=== PATIENT | female | born 2005 | race Hispanic/Latino ===

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

== ENCOUNTER 2024-04-14 07:54 | Emergency (ER) | payer SELFPAY ==
--- OUTSIDE RECORDS SUMMARY | 2024-04-14 07:56 | XMS REPORT | Continuity of Care Document ---
Author Name Unknown Address [address] [place] [address] [facility] thconnect Address [address] [place] [address] Care Team Providers Care Vice President Of Academic Affairs Name Role Phone Michael JO, [facility] Primary Care Physician [phone] Medications Ordered Medication Name Filled Medication Name Start Date Stop Date Current Medication? Ordering Clinician Indication Dosage Frequency Signature (SIG) Comments Components Source albuterol sulfate HFA 90 mcg/actuati on aerosol inhaler 02-01 00:00: 00 Yes 2mcg/ac tuation Emre Luciano TAKE 5 ML EVERY 4 TO 6 HOURS NEEDED FOR COUGH. 2022-10 0-04 00:00: 00 02-07 00:00 :00 No [id number] Emre Luciano TAKE 2 TABLETS ON DAY 1 THEN TAKE 1 TABLET A DAY FOR 4 DAYS. 2022-10 0- 00:00: 00 02-07 00:00 :00 No 250 Emre Luciano TAKE 1 TABLET DAILY. 2022-10 0-04 00:00: 00 02-07 00:00 :00 No 10 Emre Luciano 1-2 CAPS TID PRN 2022-10 0-04 00:00: 00 02-07 00:00 :00 No 100 Emre Luciano TAKE ONE (1) TABLET(S) BY MOUTH EVERY EIGHT HOURS NEEDED FOR MUSCLE SPASMS. 2021-10- 00:00: 00 Yes Emre Luciano TAKE ONE (1) TABLET(S) BY MOUTH EVERY SIX HOURS NEEDED FOR PAIN. 2021-10 00:00: 00 Yes Emre Luciano Vital Signs Vital Name Observation Time Observation Value Comments S ource Respiratory Rate 2024 10:03:00 19.00 /min Emre Luciano BP Systolic 2024 10:03:00 110 mm[Hg] Step lolita Luciano BP Diastolic 2024 10:03:00 74 mm[Hg] Bill phen Mary Luciano Weight Measured 2024 10:03:00 104.20 pounds Emre Luciano Height Measured 2024 10:03:00 62.40 inches Emre Lucaino Body Temperature 2024 10:03:00 98.10 degrees Emre Luciano Heart Rate 2024 10:03:00 67.00 /min Nneka en F Mustapha BP Systolic 2023-07-16 10:34:00 117 mm[Hg] Magdi Luciano BP Diastolic 2023-07-16 10:34:00 80 mm[Hg] Bill phen Mary Luciano Weight Measured 2023-07-16 10:34:00 105.60 pounds Emre Luciano Height Measured 2023-07-16 10:34:00 62.40 inches Emre Luciano Body Temperature 2023-07-16 10:34:00 98.10 degrees Emre Luciano Heart Rate 2023-07-16 10:34:00 84.00 /min Nneka en Mary Luciano Respiratory Rate 2023-07-16 10:34:00 16.00 /min Emre Luciano Encounters Start Date/Time End Date/Time Encounter Type Admission Type Attending [facility] Care Department Encounter ID Source 2024 09:57:56 2024 09:57:56 Outpatient SFA SFA [id number] Emre Luciano 2024 00:00:00 2024 00:00:00 Outpatient Visit [facility] [id number] Emre Luciano Notes Date/Time Note Provider Source 2024 00:00:00 [id number] T00:00:00+ + +| Plan Activity | Plan Date |+ ====+ +| Increase intake of proteins | 2023-07-16 |+ ----+ +| will treat to r/o upper respiratory infection | 2023-07-16 || Benzonatate 100 MG 1-2 CAPS TID PRN Yes | || Promethazine-DM 6.25-15 MG/5ML TAKE 5 ML EVERY 4 TO 6 HOURS NEEDED FOR | || COUGH. | |+ ----+ +| healthy diet and excercise | 2023-07-16 |+ ----+ +| healthy diet and excercise | 2023-07-16 |+ ----+ +| Auto-Add by COVID19 Screen Import | 2024 || No testing | |+ ----+ +| Mucinex DM | 2024 || symptomatic care | || OTC Claritin, lemon, honey, carrie | || Albuterol inhaler | || RTC 1 month for follow-up | |+ ----+ +[id number] of TreatmentLNCARE PLANTXTSFA|[id number] for patient [id number] Section NarrativeNARRATIVEFormatted C-CDA karmen Luciano [facility]2024-04-28T00:00:00 Emre Jhonny [facility]"
[2024-04-14] MEDS ORDERED: dexAMETHasone 10 MG/ML VIAL ONE (08:05)
[2024-04-14 09:14] LABS: SARS-CoV-2 Antigen CONTROL BLUE LINE VIS/BG OK; SARS-CoV-2 Antigen Rapid Res Negative (Negative)
--- NOTE | 2024-04-14 09:28 | EDPHYS ---
Physician Documentation [facility] Name: Allyson Mitchell Age: 19 yrs Sex: Female : 2005 Arrival Date: 04/14/2024 Time: 07:54 Bed 6 Private MD: ED Physician Hayley Arrington HPI: 04/14 08:13 This 19 yrs old Female presents to ER via Ambulatory with complaints of Sore sp3 Throat. 08:13 19-year-old female with history of scoliosis presents with sore throat for 3 to 4 days sp3 along with hoarse voice. Patient denies fever, chest pain, cough, known sick contacts, back pain, shortness of breath, travel history, or any other signs or symptoms on ROS at this time. Patient can still breathe and swallow without difficulty.. 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 - Infectious Disease History:: Denies. - Social history:: Smoking status: Patient denies any tobacco usage or history of. ROS: 08:14 Constitutional: Negative for fever, chills, and weight loss, Eyes: Negative for injury, sp3 pain, redness, and discharge, Neck: Negative for injury, pain, and swelling, Cardiovascular: Negative for chest pain, palpitations, and edema, Respiratory: Negative for shortness of breath, cough, wheezing, and pleuritic chest pain, Abdomen/GI: Negative for abdominal pain, nausea, vomiting, diarrhea, and constipation, Back: Negative for injury and pain, MS/Extremity: Negative for injury and deformity, Skin: Negative for injury, rash, and discoloration, Neuro: Negative for headache, weakness, numbness, tingling, and seizure, Psych: Negative for depression, anxiety, suicide ideation, homicidal ideation, and hallucinations, Allergy/Immunology: Negative for hives, rash, and allergies, Endocrine: Negative for neck swelling, polydipsia, polyuria, polyphagia, and marked weight changes, 08:14 All other systems are negative, Exam: 08:14 Constitutional: This is a well developed, well nourished patient who is awake, alert, sp3 and in no acute distress. Head/Face: Normocephalic, atraumatic. Eyes: Pupils equal round and reactive to light, extra-ocular motions intact. Lids and lashes normal. Conjunctiva and sclera are non-icteric and not injected. Cornea within normal limits. Periorbital areas with no swelling, redness, or edema. ENT: Nares patent. No nasal discharge, no septal abnormalities noted. External auditory canals are clear. Oropharynx with no redness, swelling, or masses, exudates, or evidence of obstruction, uvula midline. Mucous membranes moist. Neck: Trachea midline, no thyromegaly or masses palpated, and no cervical lymphadenopathy. Supple, full range of motion without nuchal rigidity, or vertebral point tenderness. No Meningismus. Chest/axilla: Normal chest wall appearance and motion. Nontender with no deformity. No lesions are appreciated. Cardiovascular: Regular rate and rhythm with a normal S1 and S2. No gallops, murmurs, or rubs. Normal PMI, no JVD. No pulse deficits. Respiratory: Lungs have equal breath sounds bilaterally, clear to auscultation and percussion. No rales, rhonchi or wheezes noted. No increased work of breathing, no retractions or nasal flaring. Abdomen/GI: Soft, non-tender, with normal bowel sounds. No distension or tympany. No guarding or rebound. No evidence of tenderness throughout. Back: No spinal tenderness. No costovertebral tenderness. Full range of motion. Skin: Warm, dry with normal turgor. Normal color with no rashes, no lesions, and no evidence of cellulitis. MS/ Extremity: Pulses equal, no cyanosis. Neurovascular intact. Full, normal range of motion. Neuro: Awake and alert, GCS 15, oriented to person, place, time, and situation. Cranial nerves II-XII grossly intact. Motor strength 5/5 in all extremities. Sensory grossly intact. Cerebellar exam normal. Normal gait. Psych: Awake, alert, with orientation to person, place and time. Behavior, mood, and affect are within normal limits. Vital Signs: 08:04 BP 119 / 83; Pulse 78; Resp 16; Temp 97.8; Pulse Ox 100% on R/A; Weight 46.72 kg; iw Height 4 ft. 11 in. ; Pain 0/10; 08:14 BP 101 / 91; Pulse 74; Resp 16; Pulse Ox 100% ; ko1 09:16 BP 99 / 71; Pulse 69; Resp 16; Pulse Ox 100% ; ko1 09:31 BP 103 / 67; Pulse 69; Resp 16; Pulse Ox 100% ; ko1 08:04 Body Mass Index 20.80 (46.72 kg, 149.86 cm) iw 08:04 Pain Scale: Adult iw MDM: 08:00 Patient medically screened. sp3 08:14 Data reviewed: vital signs, nurses notes, lab test result(s). ED course: 19-year-old sp3 female with sore throat and hoarse voice. Consider viral illness, strep pharyngitis, influenza, COVID-19, among others. I am not highly suspicious for pneumonia, sepsis, shock, meningitis, or any other critical pathology. There is no uvular shift and I am not suspicious of peritonsillar abscess or related infection. Will obtain swabs and administer Decadron 10 mg IM for symptomatic control. Antibiotics will be layered on if indicated otherwise conservative management of viral illness and OTC NSAIDs with PCP follow-up as needed.. 04/14 08:03 Order name: Strep sp3 04/14 08:03 Order name: Flu; Complete Time: 09:27 sp3 04/14 08:03 Order name: SARS RAPID; Complete Time: 09:27 sp3 04/14 09:12 Order name: Throat Culture EDMS Administered Medications: 08:10 Drug: Dexamethasone IM 10 mg IM once Route: IM; Site: left deltoid; ko1 08:25 Follow up: Response: No adverse reaction ko1 Disposition Summary: 04/14/24 09:28 Discharge Ordered Notes: Location: Home sp3 Condition: Stable sp3 Diagnosis - Laryngitis, viral illness sp3 Followup: sp3 - With: Private Physician - When: Upon discharge from the Emergency Department - Reason: Continuance of care Discharge Instructions: - Discharge Summary Sheet sp3 - Laryngitis sp3 Forms: - Medication Reconciliation Form sp3 - Antibiotic Education sp3 - Prescription Opioid Use sp3 - Patient Portal Instructions sp3 - Leadership Thank You Letter sp3 Prescriptions: - Diclofenac Sodium 75 mg Oral Tablet Sustained Release - take 1 tablet ORAL route 2 times per day; 30 tablet; Refills: 0, Product sp3 Selection Permitted - Medrol (Errol) 4 mg Oral Tablets, Dose Pack - take 1 tablet ORAL route as directed - follow package instructions; 1 packet; sp3 Refills: 0, Product Selection Permitted Signatures: Dispatcher [employer] EDEunice Potter, RN RN iw Hayley Arrington MD MD sp3 Lourdes Correa RN RN ko1 Corrections: (The following items were deleted from the chart) 08:03 08:03 Group A Streptococcus Rapid Sc+BA.LAB.BRZ ordered. EDMS EDMS 08:03 08:03 Influenza Screen (A \T\ B)+BA.LAB.BRZ ordered. EDMS EDMS 08:03 08:03 SARS-COV-2 Antigen Rapid+I.LAB.BRZ ordered. EDMS EDMS
--- NOTE | 2024-04-14 09:28 | ER ---
Nurse's Notes [facility] Name: Allyson Mitchell Age: 19 yrs Sex: Female : 2005 Arrival Date: 04/14/2024 Time: 07:54 Bed 6 Private MD: Diagnosis: Laryngitis, viral illness Presentation: 04/14 08:04 Chief complaint: Patient states: lost her voice three days ago, does not have any pain. iw Coronavirus screen: At this time, the client does not indicate any symptoms associated with coronavirus-19. Ebola Screen: Patient negative for fever greater than or equal to 101.5 degrees Fahrenheit, and additional compatible Ebola Virus Disease symptoms Patient denies exposure to infectious person. Patient denies travel to an Ebola-affected area in the 21 days before illness onset. No symptoms or risks identified at this time. 08:04 Method Of Arrival: Ambulatory iw 08:04 Acuity: MICHAEL 4 iw 08:12 Initial Sepsis Screen: Does the patient meet any 2 criteria? No. Patient's initial ko1 sepsis screen is negative. Does the patient have a suspected source of infection? No. Patient's initial sepsis screen is negative. Risk Assessment: Do you want to hurt yourself or someone else? Patient reports no desire to harm self or others. Onset of symptoms is unknown. Triage Assessment: 08:12 General: Appears in no apparent distress. Behavior is calm, cooperative, appropriate ko1 for age. Pain: Denies pain. EENT: Reports loss of voice. Neuro: No deficits noted. Cardiovascular: No deficits noted. Respiratory: No deficits noted. GI: No deficits noted. : No deficits noted. Derm: No deficits noted. Musculoskeletal: No deficits noted. 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 - Infectious Disease History:: Denies. - Social history:: Smoking status: Patient denies any tobacco usage or history of. Screenin:14 [facility] ED Fall Risk Assessment (Adult) History of falling in the last 3 months, ko1 including since admission No falls in past 3 months (0 pts) Confusion or Disorientation No (0 pts) Intoxicated or Sedated No (0 pts) Impaired Gait No (0 pts) Mobility Assist Device Used No (0 pt) Altered Elimination No (0 pt) Score/Fall Risk Level 0 - 2 = Low Risk Oriented to surroundings, Maintained a safe environment, Educated pt \T\ family on fall prevention, incl call for assistance when getting out of bed, Assessed \T\ reinforced patient's understanding of fall precautions, Provided non-skid footwear, Hourly rounding (assess needs \T\ fall precautionary measures) done. Abuse screen: Denies threats or abuse. Denies injuries from another. Nutritional screening: No deficits noted. Tuberculosis screening: No symptoms or risk factors identified. Assessment: 08:14 Respiratory: Airway is patent Respiratory effort is even, unlabored, Breath sounds are ko1 clear. EENT: Throat is clear is pink. Vital Signs: 08:04 BP 119 / 83; Pulse 78; Resp 16; Temp 97.8; Pulse Ox 100% on R/A; Weight 46.72 kg; iw Height 4 ft. 11 in. ; Pain 0/10; 08:14 BP 101 / 91; Pulse 74; Resp 16; Pulse Ox 100% ; ko1 09:16 BP 99 / 71; Pulse 69; Resp 16; Pulse Ox 100% ; ko1 09:31 BP 103 / 67; Pulse 69; Resp 16; Pulse Ox 100% ; ko1 08:04 Body Mass Index 20.80 (46.72 kg, 149.86 cm) iw 08:04 Pain Scale: Adult ED Course: 07:56 Patient arrived in ED. im 07:57 Hayley Arrington MD is Attending Physician. sp3 08:03 Lourdes Correa, BUD is Primary Nurse. ko1 08:07 Triage completed. iw 08:08 Arm band placed on. iw 08:10 SARS RAPID Sent. ko1 08:10 Flu Sent. ko1 08:10 Strep Sent. ko1 08:10 COVID swab sent to lab. Flu and/or RSV swab sent to lab. Strep swab sent to lab. ko1 08:14 Patient has correct armband on for positive identification. Bed in low position. Call ko1 light in reach. Provided Education on: tests, meds, call light. Pulse ox on. NIBP on. Door closed. Noise minimized. Lights dimmed. Pillow given. 08:14 No provider procedures requiring assistance completed. Patient did not have IV access ko1 during this emergency room visit. Administered Medications: 08:10 Drug: Dexamethasone IM 10 mg IM once Route: IM; Site: left deltoid; ko1 08:25 Follow up: Response: No adverse reaction ko1 Medication: 08:14 VIS not applicable for this client. ko1 Outcome: :28 Discharge ordered by . sp3 09:31 Discharged to home ambulatory, ko1 :31 Condition: stable :31 Discharge instructions given to patient, Instructed on discharge instructions, follow up and referral plans. medication usage, Demonstrated understanding of instructions, follow-up care, medications, Prescriptions given X 2, 09:32 Patient left the ED. ko1 Signatures: Eunice Dale RN RN Hayley Hurley MD MD sp3 Lourdes Correa, RN RN ko1 [place]
[2024-04-14 10:36] VITALS: BP 103/67; TEMP 97.8; O2SAT 100
== END 2024-04-14 09:32 | disposition home or self-care (01) ==
LOC: ER 07:54
DX: B34.9 Viral infection, unspecified (principal); Z11.52 Encounter for screening for COVID-19
CPT/HCPCS: 36415; 87070; 87081; 87804; 87811; 96372; 99284; J1100